=== PATIENT | female | born 1985 | race African-American/Black ===

== ENCOUNTER 2023-05-03 10:12 | Outpatient (CLI) | payer OTHER, SELFPAY ==
--- NOTE | ~2023-05-03 | XR_ITS ---
XR foot RT standing 2V DATE: 05/03/2023 10:50 INDICATION: Abnormal immunological finding TECHNIQUE: Standing AP and lateral views COMPARISON: None FINDINGS: Pes planus. No fracture or dislocation, periosteal reaction or bone destruction, erosive change. Joint spaces are preserved. IMPRESSION: Pes planus Reviewed, dictated and finalized at location B. IMPRESSION: Pes planus
--- NOTE | ~2023-05-03 | XR_ITS ---
XR foot LT standing 2V DATE: 05/03/2023 10:50 INDICATION: Abnormal immunological finding TECHNIQUE: Standing AP and lateral views COMPARISON: None FINDINGS: Pes planus. No fracture or dislocation, periosteal reaction or bone destruction. Joint spaces are preserved. No e rosive change. IMPRESSION: Pes planus Reviewed, dictated and finalized at location B. IMPRESSION: Pes planus
--- NOTE | ~2023-05-03 | XR_ITS ---
XR hand BI arthritis min 3V 05/03/2023 10:50 Indication: Abnormal immunological findings Procedure: 4 views of each hand Comparison: No prior studies for comparison. Findings: There is anatomic alignment. No fracture, subluxation or dislocation. No erosive changes. N o significant soft tissue abnormality. No foreign bodies. Impression: 1: No significant bone or joint abnormality. Reviewed, dictated and finalized at location A. Impression: 1: No significant bone or joint abnormality.
[2023-05-03 10:53] LABS: Basophils Percent Auto 0.8 % (0.2-1.2); Eosinophils Percent Auto 0.8 % (0-4.4); Hemoglobin 13.9 g/dL (12.0-15.0); Immature Granulocyte Absolute 0.01 K/mm3 (0.00-0.031); Immature Granulocyte Percent A 0.2 % (0-0.5); Lymphocytes Absolute Auto 1.49 K/mm3 (0.9-3.2); Lymphocytes Percent Auto 31.6 % (18.3-44.2); Mean Corpuscular HGB Conc 32.3 g/dl (32-36); Mean Corpuscular Hemoglobin 32.8 pg (26-34); Mean Corpuscular Volume 101.4 fl (80-100); Mean Platelet Volume 10.7 fl (7.4-10.4); Monocytes Absolute Auto 0.3 K/mm3 (0.1-0.6); Monocytes Percent Auto 5.3 % (2.6-8.5); Neutrophils Absolute Auto 2.9 K/mm3 (1.3-6.7); Neutrophils Percent Auto 61.3 % (45.5-73.1); Platelet Count Result 277 k/mm3 (150-375); Red Blood Count 4.24 M/mm3 (4.2-5.4); Red Cell Distribution Width 11.4 % (11.5-14.5); White Blood Count 4.7 K/mm3 (4.5-10.0)
[2023-05-03 11:04] LABS: Uric Acid 4.3 mg/dL (2.5-7.5)
[2023-05-03 11:18] LABS: Complement C3 126 mg/dL (88-165); Rheumatoid Factor < 12.0 IU/ML (<12)
[2023-05-03 11:25] LABS: Vitamin D 25 Hydroxy 47.8 ng/mL
[2023-05-03 11:40] LABS: Hepatitis B Surface Antigen Negative (Negative)
[2023-05-03 11:58] LABS: Hepatitis C Virus Antibody Negative (Negative)
[2023-05-07 17:17] LABS: SM Antibody <1.0; SM/RNP Antibody <1.0
[2023-05-07 22:43] LABS: Anti Cyclic Citrullinated Pept <16 Units (<20)
== END 2023-05-03 10:13 | disposition home or self-care (01) ==
PROVIDERS: PCP Family Medicine; Visit Provider Internal Medicine
DX: M06.042 Rheumatoid arthritis without rheumatoid factor, left hand (principal); M06.041 Rheumatoid arthritis without rheumatoid factor, right hand; Z79.899 Other long term (current) drug therapy; Z71.89 Other specified counseling; R76.8 Other specified abnormal immunological findings in serum; R53.83 Other fatigue; M19.90 Unspecified osteoarthritis, unspecified site; M21.42 Flat foot [pes planus] (acquired), left foot; M21.41 Flat foot [pes planus] (acquired), right foot
CPT/HCPCS: 36415; 73130; 73620; 82306; 84550; 85025; 86160; 86200; 86235; 86430; 86803; 87340

== ENCOUNTER 2024-01-31 10:30 | Outpatient (CLI) | payer BC, SELFPAY ==
--- NOTE | ~2024-01-31 | MM_ITS ---
EXAMINATION: MM screening [facility] BI w lobo HISTORY: Screening TECHNIQUE: Craniocaudal and mediolateral oblique 3-D tomosynthesis images were obtained and synthetic 2-D images were generated. CAD analysis was submitted and interpreted. COMPARISON: No prior mammogram is available for comparison at this institution. BREAST PARENCHYMAL COMPOSITION: Dense: The breasts are heterogeneously dense, which may obscure small masses FINDINGS: . There are asymmetries of the right breast posteriorly centered in the upper central aspec t of the breast. There are asymmetries in the lower inner quadrant of the left breast. There is a foc al asymmetry in the lateral aspect of the left breast posteriorly on CC view. IMPRESSION: 1. Bilateral breast asymmetries. 2. Additional mammographic views and possible breast ultrasound are recommended. BI-RADS Category 0: Incomplete: Needs additional imaging evaluation. Reviewed, dictated and finalized at location B. IMPRESSION: 1. Bilateral breast asymmetries. 2. Additional mammographic views and possible breast ultrasound are recommended . BI-RADS Category 0: Incomplete: Needs additional imaging evaluation.
== END 2024-01-31 10:31 ==
PROVIDERS: PCP Internal Medicine; Visit Provider Internal Medicine
DX: Z12.31 Encounter for screening mammogram for malignant neoplasm of breast (principal); N64.89 Other specified disorders of breast
CPT/HCPCS: 77063; 77067

== ENCOUNTER 2024-03-11 09:01 | Outpatient (CLI) | payer BC, SELFPAY ==
--- NOTE | ~2024-03-11 | MM_ITS ---
EXAMINATION: MM diagnostic [facility] BI w lobo HISTORY: Bilateral breast asymmetry TECHNIQUE: Additional 3-D tomosynthesis images of the bilateral breasts were performed and synthetic 2-D images were generated. CAD analysis was submitted and interpreted. COMPARISON: 01/31/2024 BREAST PARENCHYMAL COMPOSITION:Dense: The breasts are heterogeneously dense, which may obscure small masses. FINDINGS: No suspicious distortion or mass lesion seen on spot compression views. No suspicious micro calcifications. IMPRESSION: No mammographic evidence for malignancy. BI-RADS Category 1: Negative Reviewed, dictated and finalized at location .
== END 2024-03-11 09:02 | disposition home or self-care (01) ==
LOC: MICIMG 09:02
PROVIDERS: PCP Internal Medicine; Visit Provider Nurse Practitioner
DX: R92.8 Other abnormal and inconclusive findings on diagnostic imaging of breast (principal)
CPT/HCPCS: 77062; 77066; G0279

== ENCOUNTER 2025-03-16 10:40 | Outpatient (CLI) | payer BC, SELFPAY ==
--- NOTE | ~2025-03-16 | MM_ITS ---
EXAMINATION: MM screening [facility] BI w lobo HISTORY: Screening TECHNIQUE: Craniocaudal and mediolateral oblique 3-D tomosynthesis images were obtained and synthetic 2-D images were generated. CAD analysis was submitted and interpreted. COMPARISON: 01/31/2024 BREAST PARENCHYMAL COMPOSITION: The breasts are heterogeneously dense, which may obscure small masses. FINDINGS: There is no evidence of suspicious mass, calcification, or architectural distortion in either breast to suggest malignancy. Focal asymmetry in the right breast at the 6:00 position posterior depth. In addition, there is an asymmetry in the upper right breast, middle depth, seen in the right MLO projection. Asymmetry in the medial left breast, posterior depth, seen in the left CC projection. Asymmetry in the lower left breast, posterior depth, seen in the left MLO projection. IMPRESSION: 1. Focal asymmetry in the right breast at the 6:00 position posterior depth. In addition, there is an asymmetry in the upper right breast, middle depth, seen in the right MLO projection. The study is incomplete. A diagnostic right breast mammogram and a diagnostic right breast ultrasound is recommended. 2. Asymmetry in the medial left breast, posterior depth, seen in the left CC projection. Asymmetry in the lower left breast, posterior depth, seen in the left MLO projection. The study is incomplete. A diagnostic left breast mammogram in a diagnostic left breast ultrasound is recommended. BI-RADS 0: Incomplete-Need additional imaging evaluation. Reviewed, dictated and finalized at location Q. IMPRESSION: 1. Focal asymmetry in the right breast at the 6:00 position posterior depth. In addition, there is an asymmetry in the upper right breast, middle depth, seen in the right MLO projection. The study is incomplete. A diagnostic right breast mammogram and a diagnostic right breast ultrasound is recommended. 2. Asymmetry in the medial left breast, posterior depth, seen in the left CC pr ojection. Asymmetry in the lower left breast, posterior depth, seen in the left MLO projection. The study is incomplete. A diagnostic left breast mammogram in a diagnostic left breast ultrasound is recommended. BI-RADS 0: Incomplete-Need additional imaging evaluation.
== END 2025-03-16 10:41 | disposition home or self-care (01) ==
LOC: MICIMG 10:40
PROVIDERS: PCP Internal Medicine; Visit Provider Internal Medicine
DX: Z12.31 Encounter for screening mammogram for malignant neoplasm of breast (principal); R92.8 Other abnormal and inconclusive findings on diagnostic imaging of breast
CPT/HCPCS: 77063; 77067

== ENCOUNTER 2025-05-10 09:08 | Outpatient (CLI) | payer BC, SELFPAY ==
--- NOTE | ~2025-05-10 | MMUS_ITS ---
EXAMINATION: MM diagnostic [facility] BI w lobo, US breast RT complete HISTORY: Follow-up right bilateral breast asymmetries TECHNIQUE: Additional 3-D tomosynthesis images of the breasts were performed and synthetic 2-D images were generated. CAD analysis was submitted and interpreted. High resolution complete right breast ultrasound was performed. COMPARISON: Comparison to multiple prior studies sequentially, with oldest reviewed study dated 01/31/2024. BREAST PARENCHYMAL COMPOSITION: Dense: The breasts are heterogeneously dense, which may obscure small masses FINDINGS: MAMMOGRAPHIC FINDINGS: There are no suspicious masses, calcifications or architectural distortion in either breast to suggest malignancy. ULTRASOUND: Complete US of all 4 quadrants of the right breast/s and retroareolar region was reviewed. Normal heterogeneous echotexture without focal solid or cystic mass. IMPRESSION: 1. No evidence for malignancy in either breast. 2. Routine yearly screening mammogram and regular clinical breast examination are recommended. BI-RADS Category 1: Negative Reviewed, dictated and finalized at location B. 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 No evidence for malignancy in either breast. 2. Routine yearly screening mammogram and regular clinical breast examination a re recommended. BI-RADS Category 1: Negative
== END 2025-05-10 09:09 | disposition home or self-care (01) ==
PROVIDERS: PCP Internal Medicine; Visit Provider Internal Medicine
DX: R92.8 Other abnormal and inconclusive findings on diagnostic imaging of breast (principal)
CPT/HCPCS: 76641; 77062; 77066; G0279